=== PATIENT | male | born 1965 | race Two or more races ===

== ENCOUNTER 2025-01-18 10:40 | Outpatient (REF) | payer OTHER, SELFPAY ==
--- NOTE | 2025-01-18 10:47 | EMG_ITS ---
Chief complaint: Sudden onset 4 months ago of numbness from right wrist to 4th and 5th digits. Then noted weakness, inability to flex right 4th and 5th digits. Reason for referral: Evaluate for ulnar neuropathy Referred by: Filipe TAN Procedure done: Right upper extremity NCS/EMG Precautions and/or limitations: None The limb temperature was monitored continuously and remained between 32-36 degrees C during the performance of the NCS. Ulnar motor NCS was performed with moderate elbow flexion between 70-90 degrees, with across-elbow distance of 10 cm. Nerve Conduction Studies Anti Sensory Summary Table ?Stim Site NR Onset (ms) Norm Onset (ms) Peak (ms) Norm Peak (ms) O-P Amp (?V) Norm O-P Amp Site1 Site2 Delta-0 (ms) Dist (cm) Marlon (m/s) Norm Marlon (m/s) Right Med Ante Brach Cutan Anti Sensory (Med Forearm) Elbow ? 1.1 1.3 9.7 Elbow Med Forearm 1.1 0.0 Right Median Anti Sensory (2nd Digit) Wrist ? 2.5 3.2 <3.6 19.8 >10 Wrist 2nd Digit 2.5 14.0 56 Right Radial Anti Sensory (Thumb) Forearm ? 1.5 2.2 <3.1 24.5 Forearm Thumb 1.5 10.0 67 Right Ulnar Anti Sensory (5th Digit) Wrist ? 2.5 3.2 <3.7 15.1 >15.0 Wrist 5th Digit 2.5 14.0 56 Motor Summary Table ?Stim Site NR Onset (ms) Norm Onset (ms) O-P Amp (mV) Norm O-P Amp iAmp (mV) Amp (1st) (%) Site1 Site2 Delta-0 (ms) Dist (cm) Marlon (m/s) Norm Marlon (m/s) Right Median Motor (Abd Poll Brev) Wrist ? 3.1 <3.9 10.4 >4.5 12.3 100.0 Elbow Wrist 4.5 22.0 49 >45 Elbow ? 7.6 9.8 11.8 94.2 Right Ulnar Motor (Abd Dig Minimi) Wrist ? 2.8 <3.0 7.7 >5 10.0 100.0 B Elbow Wrist 3.9 19.0 49 >45 B Elbow ? 6.7 7.5 9.6 97.4 A Elbow B Elbow 1.3 10.0 77 >45 A Elbow ? 8.0 7.3 9.4 94.8 EMG ?Side Muscle Nerve Root Ins Act Fibs Psw Amp Dur Poly Recrt Int Pat Comment Right 1stDorInt Ulnar C8-T1 Nml Nml Nml Nml Nml 0 Nml Complete Right FlexCarRad Median C6-7 Nml Nml Nml Nml Nml 0 Nml Complete Right FlexCarpiUln Ulnar C8,T1 Nml Nml Nml Nml Nml 0 Nml Complete Right Biceps Musculocut C5-6 Nml Nml Nml Nml Nml 0 Nml Complete Right Triceps Radial C6-7-8 Nml Nml Nml Nml Nml 0 Nml Complete Right Deltoid Axillary C5-6 Nml Nml Nml Nml Nml 0 Nml Complete Right FlexDigSuper Median C7-8 Incr 1+ 1+ Nml Nml 0 Reduced Complete Right FlexDigProf Ulnar C8,T1 Nml Nml Nml Nml Nml 0 Nml Complete Paraspinal EMG ?Side Muscle Nerve Root Ins Act Fibs Psw Comment Right Cervical Upper Rami Nml Nml Nml Right Cervical Mid Rami Nml Nml Nml Right Cervical Lower Rami Nml Nml Nml FINDINGS: Right MAC was present but slightly small amplitude. Rest of motor and sensory nerves tested showed normal latencies, amplitudes and conduction velocities. Concentric needle EMG was performed in selected muscles of the right upper extremity and cervical paraspinals. Study revealed signs of electric abnormalities as shown in the table above. Right FDI showed increased insertional activity, PSWs and fibrillations, with reduced recruitment. IMPRESSION: 1. This is an abnormal study. 2. Possible beginning right ulnar neuropathy proximal to FDS versus right lower trunk brachial plexopathy. 3. There is no electrodiagnostic evidence for median neuropathy or cervical radiculopathy. CLINICAL COMMENT: Consider OT to help with the weakness. Consider repeat EMG in 3-6 months. Thank you for your kind referral. Cristal Souza MD, CEDRIC Board Certified, [place] [employer] and Rehabilitation (ABPMR) Board Certified, [place] Board of Electrodiagnostic Medicine (ABEM) [place] [id number] [facility]
--- OUTSIDE RECORDS SUMMARY | 2025-01-18 12:51 | XMS_ITS | Encounter Summary ---
Author Organization [facility] Address [address] [place] [address] Care Team Providers Care Government Documents Librarian Name Role Phone Taryn Wilson MD Primary Care Provider [phone] Reason for Visit * Reason Onset Date Comments Results 12/22/2024 Encounter Details Date Type Department Care Team ([facility] st Contact Info) Description 12/22/2024 Results Follow-Up Internal Medicine - [address] [phone] Doug Reinoso NP [address] [place] [address] Social History Tobacco Use Types Packs/Day Years Used Date Smoking Tobacco: Former Cigarettes 0.1 Q uit: 01/07/2021 Smokeless Tobacco: Never Alcohol Use Standard Drinks/Week Comments No 0 (1 standard drink = 0.6 oz pur e alcohol) Sex and Gender Information Value Date Recorded Sex Assigned at Not on file Legal Sex Male 4:51 AM EST Gender Identity Not on file Sexual Orientation Not on file documented as of this encounter Ordered Prescriptions Prescription Sig Dispense Quantity Refills Last Filled Start Date End Date aspirin 81 mg chewable tabletIndications: Atherosclerosis Chew 1 tablet (81 mg total) 1 (one) time each day. 30 each 11 12/22/2024 12/22/2025 documented in this encounter Progress Notes * Ana Strickland - 12/22/2024 10:50 AM EDT Shira (on VR) calling would like a call back please return * Franny Singh MA - 12/22/2024 8:54 AM EDT Lvm to return call forward to ext [phone] or B side * Franny Singh MA - 12/22/2024 8:54 AM EDT ----- Message from Bernard Reinoso NP sent at 12/22/2024 7:58 AM EDT ----- Please inform the patient: There is no evidence of abnormal blood flow in the carotid arteries. However, a small amount of atherosclerosis (fat deposits on the artery mullins) was noted. As a precautionary measure, I have initiated treatment with a daily baby aspirin. ----- Message ----- From: Interface, Incoming Ancillary Results - Imaging Results [id number] Sent: 12/20/2024 4:15 PM EDT To: Doug Reinoso NP documented in this encounter Plan of Treatment Upcoming Encounters Date Type Department Care Team (Late st Contact Info) Description 02/14/2025 11:15 AM EST Office Visit Orthopedic Surgery - [place] [address] [phone] Eros Christensen MD [address] [place] [address] 04/11/2025 8:30 AM EST Office Visit Internal Medicine - [address] [phone] Doug Reinoso NP [address] [place] [id number] 12/07/2025 12:00 PM EDT Ancillary Procedure [facility] - [address] [place] [address] 01/16/2026 11:30 AM EST Office Visit Vascular Surgery - [place] [address] [place] [address] Larissa Hallman PA [address] [place] [phone] documented as of this encounter Visit Diagnoses Diagnosis Atherosclerosis- Primary documented in this encounter Care Teams Government Documents Librarian Relationship Specialty Start Date End Date Taryn Wilson MD [address] [place] [phone] PCP - General Internal Medicine 12/01/24 documented as of this encounter
--- OUTSIDE RECORDS SUMMARY | 2025-01-18 12:51 | XMS_ITS | Clinical Summary ---
Author Organization [facility] Address [address] [place] [address] Care Team Providers Care Security Officers And Guards Name Role Phone Unavailable Primary Care Provider Unavailabl e Source Comments PLEASE NOTE, if this patient is a minor, it may be UNLAWFUL to discuss sensitive information that is contained in these records (such as FAMILY PLANNING, MENTAL HEALTH or SUBSTANCE ABUSE) with the minor patient's parent or other person without the patient's specific authorization.[facility] Social History Tobacco Use Types Packs/Day Years Used Date Smoking Tobacco: Never Assessed Sex and Gender Information Value Date Recorded Sex Assigned at Not on file Legal Sex Male 7:08 AM PDT Gender Identity Not on file Sexual Orientation Not on file Plan of Treatment Not on file [place] [facility]
--- OUTSIDE RECORDS SUMMARY | 2025-01-18 12:51 | XMS_ITS | Clinical Summary ---
Author Organization Patient Business Ser [facility] Address [address] [place] [address] Care Team Providers Care Fish Cutter Name Role Phone Taryn Wilson MD Primary Care Provider [phone] Allergies No known active allergies Medications cetirizine (ZyrTEC) 10 mg tablet TOME 1 TABLETA POR VIA ORAL TODOS [place] 08/04/19 24 Active methadone HCl (METHADONE ORAL) Take by mouth. Daily ? Dose from methadone clinic Active blood sugar diagnostic (FreeStyle Lite Strips) test strip TODOS [place] CUANDO SEA NECESARIO 100 strip 5 02/26/20 24 Active omeprazole (PriLOSEC) [address] capsule Take 1 capsule (20 mg total) by mouth 1 (one) time each day. 05/24/[address] drops,suspension OPHTHalmic SUSPension PONGA MAREK GOTA EN FOUZIA DERECHO DOS VECES AL D A 09/14/19 25 Active LORazepam (ATIVAN) 0.5 mg tablet Take 1-2 tablets (0.5-1 mg total) by mouth See administration instructions. Take 30 minutes prior to procedure, start with 1 tablet, may take another tablet after 30 minutes if symptoms persist. 2 tablet 10/28/19 25 Active lisinopril-hydroCH LOROthiazide (PRINZIDE,ZESTORET IC) 20-25 mg per tablet TOME 1 TABLETA POR VIA ORAL TODOS [place] 90 tablet 1 12/02/19 25 Active metFORMIN (GLUCOPHAGE) 500 mg tablet Take 1 tablet (500 mg total) by mouth 1 (one) time each day with breakfast. 90 tablet 1 12/02/19 25 Active diclofenac (VOLTAREN) 1 % topical gelIndications:Wea kness of right upper extremity,Osteoart hritis of both knees, unspecified osteoarthritis type Apply 1 Squirt topically 2 times daily as needed (knee pain). 100 g 1 12/07/19 25 Active aspirin 81 mg chewable tabletIndications: Atherosclerosis Chew 1 tablet (81 mg total) 1 (one) time each day. 30 each 12/23/19 25 026 Active Active Problems Problem Noted Date Diagnosed Date Atherosclerosis 12/22/2024 Overview (12/22/2024): Carotid artery Doppler ultrasound 12/2024; started baby aspirin Class 3 severe obesity due t o excess calories with serious comorbidity and body mass index (BMI) of 45.0 to 49.9 in adult (CMS/[facility] V24, [facility] V28) 01/21/2024 Varicose veins of both lower extremities 022 Assessment & Plan (07/12/2024 10:09 AM EDT): I have advised him to schedule his ultrasound of the lower extremities as ordered by vascular surgery and he will call to book his appointment. Cigarette smoker 04/27/2018 Colon polyps 05/19/2016 Overview (01/21/2024): CN 05/15/2016: only one small tubular adenoma. Arthritis, degenerative 10/18/2014 Hypertensive retinopathy, grade 1 05/05/2014 Dysphagia 08/18/2013 Assessment & Plan (02/25/2024 10:26 AM EST): He informs us today that his dysphagia has improved. He is already scheduled for his barium swallow and will follow-up with GI after. GERD (gastroesophageal reflux disease) 4 Assessment & Plan (02/25/2024 10:26 AM EST): Under control. Avoid GERD triggering foods. Continue omeprazole. Retinopathy 06/27/2010 Osteoarthritis of knee 09/19/2008 Overview (01/21/2024): BILATERAL Helicobacter pylori infection 03/15/2008 Type 2 diabetes mellitus, co ntrolled, with ophthalmic manifestations ([facility] V24, [facility] V28) 10/12/2006 Hypertension 10/12/2006 Assessment & Plan (10/18/2024 11:37 AM EDT): Follow low-sodium diet. Continue correction of lisinopril-hydrochlorothiazide. Assessment & Plan (07/12/2024 10:09 AM EDT): Follow low-sodium diet. Blood pressure under control. No changes to his current regimen of lisinopril-hydrochlorothiazide. Will monitor electrolytes. Orders: CBC and differential; Future Assessment & Plan (02/25/2024 10:26 AM EST): He will follow sodium diet. Continue lisinopril-hydrochlorothiazide. Will monitor electrolytes. Displacement of lumbar inter vertebral disc without myelopathy 06/25/2006 Overview (01/21/2024): [facility] 07/03/06 [facility]: L3/4 same as 01/17/05, spinal stenosis impinging on thecal sac in context of congenital bony protuberance; post.disc bulge with central herniation, foramina patent. L4/5 same post.disc bulge & R paracentral herniation. L5/S1 mod post disc bulge & osteophyte complex posteriorly which may impinge S1 nerve roots, unchanged from 01/11. Morbid obesity ([facility] V24, [facility] V28) 2006 Assessment & Plan (07/12/2024 10:09 AM EDT): Approaches towards weight loss are encouraged, including burning more calories than one takes in by frequent, small meals, portion control, avoiding eating before bedtime and regular exercise with an emphasis on duration rather than intensity . Will see if he improves with Trulicity. Depressive disorder 12/29/2005 Pain in joint, ankle and foot 06/20/2005 Encounters Date Type Department Care Team Description 01/09/2025 11:00 AM EST Office Visit Vascular Surgery - [facility] [address] [facility] [address] [place] [address] Rebecca Huddleston PA Morbid obesity (CMS/HCC V24, CMS/HCC V28) (Primary Dx); Varicose veins of both lower extremities with pain 12/22/2024 Results [facility] [address] [place], [place] [address], [place] [phone] Doug Reinoso NP 12/20/2024 1:01 PM EDT - 12/20/2024 11:59 PM EDT Hospital [facility] [address] [place], [place] [address], [place] [phone] Weakness of right upper extremity Discharge Disposition: Home or Self Care 12/09/2024 Telephone Internal Medicine - [address] [phone] Doug Reinoso NP 12/06/2024 8:30 AM EDT Office Visit Internal Medicine - [address] [phone] Doug Reinoso NP Weakness of right upper extremity (Primary Dx); Osteoarthritis of both knees, unspecified osteoarthritis type 10/31/2024 Telephone Orthopedic Surgery [facility] [address] [facility] [address] [place] [phone] Eros Christensen MD 10/31/2024 Telephone [facility] [address] [phone] Mike Beck MD 10/27/2024 9:45 AM EDT Consult Orthopedic Surgery [facility] [address] [facility] [address] [place] [phone] Eros Christensen MD Injury of extensor tendon of right hand, initial encounter (Primary Dx); Right arm weakness; Numbness and tingling in right hand 10/27/2024 Telephone [facility] [address] [place] [phone] Mike Beck MD 10/18/2024 11:00 AM EDT [facility] [address] [facility] [phone] Mike Beck MD Right arm weakness (Primary Dx); Type 2 diabetes mellitus with hyperglycemia, without long-term current use of insulin ([facility] V24, [facility] V28); Hypertension, unspecified type from Last 3 Months Immunizations Immunization Administration Dates Next Due Influenza Quadravalent, MDCK , 0.5ml, preservative free (Flucelvax) 6mo and older 12/02/2022,05/20/2022 Influenza Quadravalent, MDCK , 0.5ml, with preservative (Flucelvax) 6mo and older 02/25/2017 Influenza trivalent, 0.5mL, preservative free (Fluarix; FluLaval; Fluzone) ages 6mo and older (Afluria) 3 years and older 11/21/2015,02/15/2015,02/21/2014,11/24,12/03/2011,11/14/2009,03/15/2008 ,12/16/2006 Influenza trivalent, MDCK, 0 .5mL, preservative free (Flucelvax) 6mo and older 12/06/2024 Pneumococcal polysaccharide 23 valent (Pneumovax 23) 2yo and older 06/19/2010 Td Tetanus diptheria (Tdvax) 7yo and older 08/29/2021 Td, Unspecified 09/29/2003 Tdap Tetanus diptheria acell ular pertussis (Boostrix; Adacel) 7yo and older 02/13/2010 Surgical History Surgery Date Site/Laterality Comments KNEE ARTHROSCOPY 12/01/05 PROCEDURE: DE ARTHROSCOPY AID TX SPINE&/FX KNEE W/O FIXJ; COMMENT: left knee. Dr. Godinez, meniscus ESOPHAGOGASTRODUODENOSCOPY 10/18/07 PROCEDURE: DE EGD TRANSORAL BIOPSY SINGLE/MULTIPLE; COMMENT: R/o Arevalo's esophagus-bx:Chronic inflammation(León's esophagus unlikely), small hiatus hernia, mild antral gastritis-bx:Chronic inflammation,HPylori+. ESOPHAGOGASTRODUODENOSCOPY 11/25/2013 PROCEDURE: DE ESOPHAGOGASTRODUODENOSCOPY TRANSORAL DIAGNOSTIC; COMMENT: Normal endoscopic findings on PPI treatment. COLONOSCOPY 05/15/16 Dr Dominguez PROCEDURE: HISTORICAL COLONOSCOPY; COMMENT: one adenoma, repeat in 5 years. ORIF WRIST FRACTURE 03/09/1994 - 03/08/1995 Right Medical History Medical History Date Comments Pain in joint, ankle and foot 06/20/2005 DX :Pain in joint, ankle and foot Lumbago 06/20/2005 DX:Lumbago Closed fracture of other bon e of wrist 06/20/2005 DX:Closed fracture of other bone of wrist Depressive disorder, not els ewhere classified 12/29/2005 DX:Depressive disorder, not elsewhere classified Morbid obesity (CMS/HCC V24, CMS/HCC V28) 04/24/2006 DX:Morbid obesity (HCC) Displacement of lumbar inter vertebral disc without myelopathy 06/25/2006 DX:Displacement of lumbar intervertebral disc without myelopathy Opiate dependence (CMS/HCC V 24, CMS/HCC V28) 05/09/2008 DX:Opiate dependence (HCC); COMMENT: At [facility], [address] [place] [address], fax [phone]. Osteoarthritis of knee 09/19/2008 DX:Osteoa rthritis of knee Type II or unspecified type diabetes mellitus without mention of complication, uncontrolled 10/12/2006 DX:Type II or unspecified t ype diabetes mellitus without mention of complication, uncontrolled Unspecified essential hypertension 10/12/2006 DX:Unspecified essential hypertension GERD (gastroesophageal reflu x disease) 08/18/2013 DX:GERD (gastroesophageal re flux disease) Hypertensive retinopathy, grade 1 05/05/2014 DX:Hypertensive retinopathy, grade 1 Retinopathy 06/27/2010 Family History Medical History Relation Name Comments Diabetes Brother 1 Other: CRF Brother 2 on dialysis Diabetes Father Hypertension Father Coronary artery disease Mother Diabetes Mother Heart attack Mother Hypertension Mother Hypertension Sister 5 sisters with HtN Blindness Neg Hx Cataracts Neg Hx Glaucoma Neg Hx Macular degeneration Neg Hx Strabismus Neg Hx Relation Name Status Comments Brother 1 Brother 2 Father sepsis Mother AL Sister Social History Tobacco Use Types Packs/Day Years Used Date Smoking Tobacco: Former Cigarettes 0.1 Q uit: 01/07/2021 Smokeless Tobacco: Never Tobacco Cessation:Counseling Given: Not Answered Alcohol Use Standard Drinks/Week Comments No 0 (1 standard drink = 0.6 oz pur e alcohol) Sex and Gender Information Value Date Recorded Sex Assigned at Not on file Legal Sex Male 4:51 AM EST Gender Identity Not on file Sexual Orientation Not on file Obstetrics History Last Filed Vital Signs Vital Sign Reading Time Taken Comments Blood Pressure 123/82 01/09/2025 10:59 AM EST Pulse 86 01/09/2025 10:59 AM EST Temperature - - Respiratory Rate - - Oxygen Saturation - - Inhaled Oxygen Concentration - - Weight 118 kg (260 lb 3.2 oz) 01/09/2025 10:59 A M EST Height 170.2 cm (5' 7 ) 12/06/2024 8:43 AM EDT Body Mass Index 40.75 12/06/2024 8:43 AM EDT Plan of Treatment Upcoming Encounters Date Type Department Care Team (Late st Contact Info) Description 02/14/2025 11:15 AM EST Office Visit Orthopedic Surgery [facility] [address] [phone] Eros Christensen MD 175 [place] [address] 04/11/2025 8:30 AM EST Office Visit Internal Medicine - [address] [phone] Doug Reinoso NP [address] [place] [address] 12/07/2025 12:00 PM EDT Ancillary Procedure [facility] [address] [facility] [address] [place] [phone] 01/16/2026 11:30 AM EST Office Visit Vascular Surgery - [facility] [address] [facility] [address] [place] [phone] Larissa Hallman PA [address] [place] [phone] Health Maintenance Due Date Last Done Comments Diabetes: Annual Foot Exam 09/22/1975 Diabetes: Annual Retina Eye Exam 09/22/1975 Hepatitis A Vaccines (1 of 2 - Risk 2-dose series) 1984 Hepatitis B Vaccines (1 of 3 - 19+ 3-dose series) 1984 Pneumococcal Vaccine: 50+ Years (2 of 2 - PCV) 06/20/2011 06/19/2010 RSV Immunization Adult Patients (1 - Risk 50-74 years 1-dose series) 09/22/2015 Zoster Vaccines (1 of 2) 09/22/2015 HIV Screening 02/15/2022 Social Influencers of Health Screening 02/15/2022 Depression Screening 03/09/2024 COVID-19 Vaccine ( season) 2024 07/17/2020, 06/26/2020 Diabetes: Blood Sugar Control Test (HGBA1C) 04/20/2025 10/18/2024, 07/12/2024, 02/25/2024, Additional history exists Diabetes: Annual Urine Albumin-Creatinine Ratio (uACR) 07/12/2025 07/12/2024, 06/02/2023 Diabetes: Annual GFR (Glomerular Filtration Rate) 07/12/2025 07/12/2024, 02/25/2024, 06/02/2023 Hypertension/CHF/CAD Annual BMP Blood Test 07/12/2025 07/12/2024, 02/25/2024, 06/02/2023 Colorectal Cancer Screening: Colonoscopy 02/18/2027 02/18/2022 Cholesterol Screening (Lipid Panel) 07/12/2029 07/12/2024, 06/02/2023 DTaP,Tdap,and Td Vaccines (4 - Td or Tdap) 08/30/2031 08/29/2021, 02/13/2010, 09/29/2003 Hepatitis C Screening Completed 02/21/2014 Influenza Vaccine Completed 12/06/2024, , 05/20/2022, Additional history exists HIB Vaccines Aged Out No longer eligi ble based on patient's age to complete this topic HPV Vaccines Aged Out No longer eligi ble based on patient's age to complete this topic IPV Vaccines Aged Out No longer eligi ble based on patient's age to complete this topic MMR Vaccines Aged Out No longer eligi ble based on patient's age to complete this topic Meningococcal ACWY Vaccine Aged Out N o longer eligible based on patient's age to complete this topic Meningococcal B Vaccine Aged Out No l onger eligible based on patient's age to complete this topic RSV Immunization Patients Under 20 months Aged Out No longer eligible based on patient's age to complete this topic Varicella Vaccines Aged Out No longer eligible based on patient's age to complete this topic Procedures Procedure Name Priority Date/Time Associated Diagnosis Comments VAS US DUPLEX CAROTID BILATERAL Routine 12/20/2024 1:47 PM EDT Weakness of right upper extremity XR WRIST 3+ VIEWS RIGHT Routine 10/27/2024 11:02 AM EDT Pain XR SHOULDER 2+ VIEWS RIGHT Routine 10/27/2024 9:42 AM EDT Pain HEMOGLOBIN A1C Routine 10/18/2024 11:32 AM EDT Type 2 diabetes mellitus with hyperglycemia, without long-term current use of insulin (CMS/HCC V24, CMS/HCC V28) MICROALBUMIN CREATININE URINE RATIO Routine 07/12/2024 10:28 AM EDT Type 2 diabetes mellitus with hyperglycemia, without long-term current use of insulin (CMS/HCC V24, CMS/HCC V28) COMPREHENSIVE METABOLIC PANEL Routine 07/12/2024 10:28 AM EDT Type 2 diabetes mellitus with hyperglycemia, without long-term current use of insulin (CMS/HCC V24, CMS/HCC V28) LIPID PANEL WITH REFLEX TO DIRECT LDL Routine 07/12/2024 10:28 AM EDT Type 2 diabetes mellitus with hyperglycemia, without long-term current use of insulin (CMS/HCC V24, CMS/HCC V28) COLONOSCOPY Routine 02/18/2022 HEPATITIS C SCREENING Routine 02/21/2014 from Last 3 Months or Most Recently Relevant to Health Maintenance Results * Vascular US duplex carotid bilateral (12/20/2024 1:47 PM EDT) Anatomical Region Laterality Modality Vascular, Abdomen Ultrasound 12/20/2024 4:05 PM EDT Impressions 12/20/2024 4:11 PM EDT RIGHT: There is less than 50% stenosis of the internal carotid artery. LEFT: No evidence of internal carotid artery stenosis Reporting standards based on the Society of Radiologists in Ultrasound Consensus Conference Statement. Analysis of internal carotid stenosis is based on duplex Doppler velocity parameters that correlate with the calculation of internal carotid artery stenosis according to the NASCET criteria. -------- FINAL REPORT -------- Dictated By: Roel Isbell Dictated Date: 12/20/2024 16:05 ET Assigned Physician: Roel Isbell Reviewed and Electronically Signed By: Roel Isbell Signed Date: 12/20/2024 16:11 ET Workstation ID: [id number] Transcribed By: Self Edit Transcribed Date: 12/20/2024 16:05 ET Narrative 12/20/2024 4:11 PM EDT EXAM: Duplex carotid ultrasound HISTORY: Hemiparesis, right upper extremity COMPARISON:None TECHNIQUE: Grayscale, color, and pulse wave Doppler images were obtained. FINDINGS: RIGHT: Velocities (in cm/sec) are as follows: Proximal common carotid-117 Distal common carotid-100 Proximal internal carotid-92.3 Mid internal carotid-79.5 Distal internal carotid-53.3 External carotid-90.4 ICA/CCA peak systolic velocity ratio - 0.92 LEFT: Velocities (in cm/sec) are as follows: Proximal common carotid-131 Distal common carotid-116 Proximal internal carotid-82.7 Mid internal carotid-97.5 Distal internal carotid-83.4 External carotid-109 ICA/CCA peak systolic velocity ratio - 0.84 Vertebral arteries demonstrate antegrade flow. Mild atherosclerosis of the right internal carotid artery left common carotid artery Procedure Note Roel Isbell MD - 12/20/2024 EXAM: Duplex carotid ultrasound HISTORY: Hemiparesis, right upper extremity COMPARISON:None TECHNIQUE: Grayscale, color, and pulse wave Doppler images were obtained. FINDINGS: RIGHT: Velocities (in cm/sec) are as follows: Proximal common carotid-117 Distal common carotid-100 Proximal internal carotid-92.3 Mid internal carotid-79.5 Distal internal carotid-53.3 External carotid-90.4 ICA/CCA peak systolic velocity ratio - 0.92 LEFT: Velocities (in cm/sec) are as follows: Proximal common carotid-131 Distal common carotid-116 Proximal internal carotid-82.7 Mid internal carotid-97.5 Distal internal carotid-83.4 External carotid-109 ICA/CCA peak systolic velocity ratio - 0.84 Vertebral arteries demonstrate antegrade flow. Mild atherosclerosis of theright internal carotid artery left common carotid artery IMPRESSION: RIGHT: There is less than 50% stenosis of the internal carotid artery. LEFT: No evidence of internal carotid artery stenosis Reporting standards based on the Society of Radiologists in UltrasoundConsensus Conference Statement. Analysis of internal carotid stenosis isbased on duplex Doppler velocity parameters that correlate with thecalculation of internal carotid artery stenosis according to the NASCETcriteria. -------- FINAL REPORT -------- Dictated By: Roel Isbell Dictated Date: 12/20/2024 16:05 ET Assigned Physician: Roel Isbell Reviewed and Electronically Signed By: Roel Isbell Signed Date: 12/20/2024 16:11 ET Workstation ID: [id number] Transcribed By: Self Edit Transcribed Date: 12/20/2024 16:05 ET Doug Reinoso NP CV VASCULAR PROCEDURES Final R esult * XR Wrist 3+ Views Right (10/27/2024 11:02 AM EDT) Anatomical Region Laterality Modality Upper Extremities, Wrist Right Compute d Radiography Narrative 10/27/2024 10:29 PM EDT 3-view x-rays of the right wrist shows post surgical changes consistent with likely scapholunate ligament repair with a metallic anchor within the lunate. There are significant degenerative changes at the midcarpal joint with dorsal osteophyte formation. Additional findings chondrocalcinosis at the the TFCC. Impression: Degenerative changes at the midcarpus with osteophyte formation, retained metallic anchor. Eros Christensen MD IMG XR PROCEDURES Final Result * XR Shoulder 2+ Views Right (10/27/2024 9:42 AM EDT) Anatomical Region Laterality Modality Upper Extremities, Shoulder Right Comp uted Radiography Narrative 10/27/2024 10:32 AM EDT 4 view x-rays of the right shoulder shows no evidence of acute fracture or dislocation. There are degenerative changes of the acromioclavicular joint. Glenohumeral joint appears congruent with slight joint space narrowing. Soft tissue shadows appear normal. Impression: Degenerative changes at the acromioclavicular joint otherwise normal radiographs of the right shoulder. Eros Christensen MD IMG XR PROCEDURES Final Result * Hemoglobin A1c (10/18/2024 11:32 AM EDT) Hemoglobin A1C 6.4 <6.5 % LAB CHEMISTRY METHOD 10/18/2024 3:20 PM EDT [facility] Mean Bld Glu Estim. 137 mg/dL LAB CHEMISTRY METHOD 10/18/2024 3:20 PM EDT [facility] Blood Venous blood specimen / Unknown Venipuncture / Unknown 10/18/2024 11:32 AM EDT 10/18/2024 11:32 AM EDT Mike Beck MD LAB BLOOD ORDERABLES Amaris l Result [facility] [address] [place] [address], * (ABNORMAL) Lipid panel with reflex to direct LDL (07/12/2024 10:28 AM EDT) Cholesterol 158 0 - 200 mg/dL LAB CHEMISTRY METHOD 07/12/2024 3:36 PM EDT [facility] Triglycerides 217(H) 0 - 150 mg/dL LAB CHEMISTRY METHOD 07/12/2024 3:36 PM EDT [facility] HDL 36(L) >=40 mg/dL LAB CHEMISTRY METHOD 07/12/2024 3:36 PM EDT [facility] LDL Calculated 79 0 - 100 mg/dL LAB CHEMISTRY METHOD 07/12/2024 3:36 PM EDT [facility] VLDL Cholesterol Tejas 43.4 mg/dL LAB CHEMISTRY METHOD 07/12/2024 3:36 PM EDT [facility] Non HDL Chol. (LDL+VLDL) 122 <145 mg/dL LAB CHEMISTRY METHOD 07/12/2024 3:36 PM EDT [facility] Chol/HDL Ratio 4.4 0.0 - 4.4 LAB CHEMISTRY METHOD 07/12/2024 3:36 PM EDT [facility] Blood Venous blood specimen / Unknown Venipuncture / Unknown 07/12/2024 10:28 AM EDT 07/12/2024 10:28 AM EDT Mike Beck MD LAB BLOOD ORDERABLES Amaris l Result [facility] [address] [place] [address], * Microalbumin creatinine urine ratio (07/12/2024 10:28 AM EDT) Creatinine, Urine 97.0 mg/dL LAB CHEMISTRY METHOD 07/12/2024 1:23 PM EDT [facility] Microalb, Ur 5.7 0.0 - 29.0 mg/L LAB CHEMISTRY METHOD 07/12/2024 1:23 PM EDT [facility] Microalb/Creat Ratio 6 <30 mg/g creat LAB CHEMISTRY METHOD 07/12/2024 1:23 PM EDT [facility] Urine Urine specimen obtained by clean catch procedure / Unknown Non-blood Collection / Unknown 07/12/2024 10:28 AM EDT 07/12/2024 10:28 AM EDT us Mike Beck MD LAB URINE ORDERABLES Amaris vernon Result [facility] [address] [place] [address], * Comprehensive metabolic panel (07/12/2024 10:28 AM EDT) Sodium 139 133 - 145 mmol/L LAB CHEMISTRY METHOD 07/12/2024 3:36 PM [facility] Potassium 4.6 3.5 - 5.5 mmol/L LAB CHEMISTRY METHOD 07/12/2024 3:36 PM [facility] Chloride 102 96 - 110 mmol/L LAB CHEMISTRY METHOD 07/12/2024 3:36 PM [facility] CO2 29 21 - 32 mmol/L LAB CHEMISTRY METHOD 07/12/2024 3:36 PM [facility] Anion Gap 8 3 - 11 LAB CHEMISTRY METHOD 07/12/2024 3:36 PM [facility] Glucose 81 70 - 100 mg/dL LAB CHEMISTRY METHOD 07/12/2024 3:36 PM [facility] BUN 14 5 - 25 mg/dL LAB CHEMISTRY METHOD 07/12/2024 3:36 PM [facility] Creatinine 0.79 0.70 - 1.30 mg/dL LAB CHEMISTRY METHOD 07/12/2024 3:36 PM [facility] eGFR 103 >=60 mL/min/1. 73m2 LAB CHEMISTRY METHOD 07/12/2024 3:36 PM [facility] Comment:Calculation based on the Chronic Kidney Disease Epidemiology Collaboration (CKD-EPI) equation refit without adjustment for race. BUN/Creatinine Ratio 17.7 LAB CHEMISTRY METHOD 07/12/2024 3:36 PM [facility] Calcium 9.1 8.5 - 10.5 mg/dL LAB CHEMISTRY METHOD 07/12/2024 3:36 PM EDT [facility] AST (SGOT) 17 10 - 42 unit/L LAB CHEMISTRY METHOD 07/12/2024 3:36 PM EDT [facility] ALT (SGPT) 25 10 - 60 unit/L LAB CHEMISTRY METHOD 07/12/2024 3:36 PM T [facility] Alkaline Phosphatase 73 42 - 121 unit/L LAB CHEMISTRY METHOD 07/12/2024 3:36 PM EDT [facility] Total Protein 7.3 6.0 - 8.0 g/dL LAB CHEMISTRY METHOD 07/12/2024 3:36 PM T [facility] Albumin 3.8 3.2 - 5.0 g/dL LAB CHEMISTRY METHOD 07/12/2024 3:36 PM [facility] Total Bilirubin 0.2 0.0 - 1.4 mg/dL LAB CHEMISTRY METHOD 07/12/2024 3:36 PM EDT [facility] Blood Venous blood specimen / Unknown Venipuncture / Unknown 07/12/2024 10:28 AM EDT 07/12/2024 10:28 AM EDT Mike Beck MD LAB BLOOD ORDERABLES Amaris vernon Result [facility] [address] [place] [address], * Colonoscopy (02/18/2022) Colonoscopy abstracted, no interpretation Anatomical Region Laterality Modality Other Historical Provider HEALTH MAINTENANCE Final Result * Hepatitis C Screening (02/21/2014) Pathologist [facility] Hepatitis C Screening abstracted Historical Provider HEALTH MAINTENANCE Final Result from Last 3 Months or Most Recently Relevant to Health Maintenance Insurance [facility] Care Teams Fish Cutter Relationship Specialty Start Date End Date Taryn Wilson MD [address] [place] [id number] PCP - General Internal Medicine 12/01/24
== END 2025-01-18 10:41 | disposition home or self-care (01) ==
LOC: HO.NEURO 10:40
DX: R20.0 Anesthesia of skin (principal); R20.2 Paresthesia of skin; G56.21 Lesion of ulnar nerve, right upper limb; R29.898 Other symptoms and signs involving the musculoskeletal system
CPT/HCPCS: 95886; 95909

== ENCOUNTER → 2025-01-18 10:47 | Outpatient (BNV) | payer OTHER, SELFPAY | PROVIDERS: Visit Provider Physical Medicine & Rehabilitation | DX: R20.0 Anesthesia of skin (principal); R20.2 Paresthesia of skin | CPT/HCPCS: 95886; 95909 ==